=== PATIENT | male | born 1990 | race Caucasian/White ===

== ENCOUNTER 2020-02-16 05:59 | Day surgery (SDC) | payer OTHER ==
[~2020-02-16] VITALS: Ht 193 cm; Wt 153.6 kg
[2020-02-16] MEDS ORDERED: SODIUM CHLORIDE 0.9% 1,000 ML IV SCH (06:16)
[2020-02-16] MEDS ORDERED: PROB500T22 PO (06:23)
[2020-02-16] MEDS ORDERED: DILT240C61 PO (06:24)
[2020-02-16 06:26] VITALS: BP 144/88
[2020-02-16 06:42] LABS: BASOPHILS # (AUTO) 0.09 x10^3/uL (0-0.1); BASOPHILS % (AUTO) 1 % (0-1); EOSINOPHILS # (AUTO) 0.14 x10^3/uL (0-0.4); EOSINOPHILS % (AUTO) 2 % (1-7); LYMPHOCYTES % (AUTO) 26 % (22-44); MD NO; MEAN CORPUSCULAR HEMOGLOBIN 24.6 pg (27.5-34.5); MEAN CORPUSCULAR HGB CONC 32.4 g/dL (33.2-36.2); MEAN CORPUSCULAR VOLUME 75.8 fL (81-97); MEAN PLATELET VOLUME 8.1 fL (7.4-10.4); MONOCYTES # (AUTO) 0.49 x10^3/uL (0.2-0.8); MONOCYTES % (AUTO) 6 % (2-9); NEUTROPHILS # (AUTO) 5.72 x10^3/uL (1.8-6.8); NEUTROPHILS % (AUTO) 66 % (42-75); PLATELET COUNT 381 x10^3/uL (130-400); RED BLOOD COUNT 5.44 x10^6/uL (4.38-5.82); RED CELL DISTRIBUTION WIDTH 15.4 % (9.4-14.8)
[2020-02-16 06:52] LABS: ANION GAP 4 mmol/L (5-15); CALCIUM 8.9 mg/dL (8.5-10.1); CHLORIDE 109 mmol/L (98-107); CREATININE 0.96 mg/dL (0.7-1.3)
[2020-02-16] MEDS ORDERED: FENTANYL PF 100 MCG/2ML ONE (07:42)
[2020-02-16] MEDS ORDERED: MIDAZOLAM 1 MG/ML, 5ML ONE (07:43)
[2020-02-16] MEDS ORDERED: LIDOCAINE 1%, 20ML ONE (07:54)
[2020-02-16] MEDS ORDERED: ISOPROTERENOL 0.2MG/ML, 5ML ONE (08:29)
[2020-02-16] MEDS ORDERED: PROBENECID 500 MG TABLET PO SCH (21:00)
== END 2020-02-16 14:58 | disposition home or self-care (01) ==
LOC: CACL 05:59
PROVIDERS: ATTEND Internal Medicine Cardiovascular Disease
DX: I47.1 Supraventricular tachycardia (principal); I48.92 Unspecified atrial flutter; I10 Essential (primary) hypertension; E66.3 Overweight; Z68.42 Body mass index [BMI] 45.0-49.9, adult; Z79.899 Other long term (current) drug therapy
CPT/HCPCS: 36415; 71046; 80048; 85025; 93613; 93623; 93653; 99156; 99157; C1730; C1732; C1766; C1894; C2630; J2250; J3010